=== PATIENT | female | born 1990 | race Caucasian/White ===

== ENCOUNTER 2020-07-18 11:03 | Emergency (ER) | payer BC, OTHER ==
[2020-07-18 11:11] VITALS: BP 107/77; PULSE 85; TEMP 97.3; BMI 29.2
[2020-07-18] MEDS ORDERED: SODIUM CHLORIDE 1,000 ML IV STA (11:38)
[2020-07-18] MEDS ORDERED: morphine CARPU-JECT 4 MG/1 ML DISP.SYRIN IVPUSH ONE ×2 (11:38→14:19)
[2020-07-18] MEDS ORDERED: ONDANSETRON 4 MG/2 ML VIAL IVPUSH ONE (11:38)
--- NOTE | 2020-07-18 11:45 | PDOC ---
History of Present Illness - General Chief Complaint: Pain Stated Complaint: SENT BY DOC Time Seen by Provider: 07/18/20 11:27 History Source: Patient Exam Limitations: No Limitations - History of Present Illness Travel History: No Initial Comments: 07/18/20 11:38 HISTORY OF PRESENT ILLNESS: 30-year-old female presents emergency department for evaluation of 1 week of upper abdominal pain worse in the right upper quadrant. Patient reports after she eats the pain increases from 8-10 and last for approximately 30 to 45 minutes before returning to level 8. She describes the pain as a sharp intense feeling worse in the right upper quadrant and epigastric regions. She reports as a result of the pain she has had a decreased appetite for this 1 week. Patient is concerned that she has asymptomatic UTIs which end up with her presenting with abdominal pain and pyelonephritis. She was seen in urgent care today reported that her urine was not suggestive of an infection and was referred to the emergency department for reevaluation. She denies fevers, chills, vaginal bleeding, vaginal discharge, dysuria, hematuria. Patient does endorse having frequent soft brown stools over the past week. No recent travel or sick contacts. PAST MEDICAL HISTORY: Denies past medical history SURGICAL HISTORY: Tubal ligation ALLERGIES: Erythromycin REVIEW OF SYSTEMS General/Constitutional: Denies fever or chills. Denies weakness, weight change. HEENT: Denies change in vision. Denies ear pain or discharge. Denies sore throat. Cardiovascular: Denies chest pain or shortness of breath. Respiratory: Denies cough, wheezing, or hemoptysis. Gastrointestinal: See HPI Genitourinary: Denies dysuria, frequency, or change in urination. Musculoskeletal: Denies joint or muscle swelling or pain. Denies neck or back pain. Skin and breasts: Denies rash or easy bruising. Neurologic: Denies headache, vertigo, loss of consciousness, or loss of sensation. Psychiatric: Denies depression or anxiety. Endocrine: Denies increased thirst. Denies abnormal weight change. Hematologic/Lymphatic: Denies anemia, easy bleeding, or history of blood clots. Allergic/Immunologic: Denies hives or skin allergy. Denies latex allergy. PHYSICAL EXAM General Appearance: Well-appearing, appropriately dressed. No apparent distress, no intoxication. Respiratory/Chest: Lungs CTAB. No shortness of breath, chest tenderness, respiratory distress, accessory muscle use. No crackles, rales, rhonchi, stridor, wheezing, dullness Cardiovascular: RRR. S1, S2. No JVD, murmur, bradycardia, tachycardia. Vascular Pulses: Dorsalis-Pedis (R): 2+, Dorsalis-Pedis (L): 2+ Gastrointestinal/Abdominal: Normal bowel sounds. Right upper quadrant tenderness with Zafar sign present. Guarding noted in the epigastrium and right upper quadrant. Remainder of abdominal exam is benign. Musculoskeletal/Extremities: Normal inspection. No CVA tenderness. Integumentary: Appropriate color, dry, warm. No cyanosis, erythema, jaundice or rash 07/18/20 11:40 Past History - Medical History Allergies/Adverse Reactions: Allergies Allergy/AdvReac Type Severity Reaction Status Date / Time erythromycin base Allergy Intermediate Swelling Verified 07/18/20 11:08 Home Medications: Ambulatory Orders Albuterol Sulfate Inhaler - [Ventolin Hfa Inhaler -] 1 - 2 inh PO PRN PRN 06/17/15 Omeprazole [Prilosec] 40 mg PO DAILY 06/17/15 Asthma: Yes COPD: No - Surgical History Abdominal Surgery: Yes - Reproductive History Is Patient Now?: No - Immunization History Immunization Up to Date: Yes - Psycho-Social/Smoking History Smoking History: Former smoker Have you smoked in the past 12 months: Yes If you are a former smoker, when did you quit?: 3 MONTHS AGO Information on smoking cessation initiated: Yes - Substance Abuse Hx (Audit-C & DAST Scrn) How often the patient has a drink containing alcohol: 2-4 times / month Score: In Men: 4 or > Positive; In Women: 3 or > Positive: 2 Screen Result (Pos requires Nsg. Audit-10AR): Negative In the last yr the pt used illegal drug/Rx for NonMed reason: No Score: Yes response is considered Positive: 0 Screen Result (Positive result requires Nsg. DAST-10): Negative *Physical Exam - Vital Signs Last Vital Signs Temp Pulse Resp BP Pulse Ox 97.3 F L 85 17 107/77 99 07/18/20 11:04 07/18/20 11:04 07/18/20 11:04 07/18/20 11:04 07/18/20 11:04 ED Treatment Course - LABORATORY CBC & Chemistry Diagram: 07/18/20 12:15 07/18/20 11:39 Medical Decision Making - Medical Decision Making 07/18/20 11:43 A/P: 30-year-old female with upper abdominal pain for 1 week with accompanying nausea, anorexia and soft brown stools Right upper quadrant tenderness with guarding present Positive Zafar sign Remainder of abdominal exam is benign No CVA tenderness elicited Differential diagnosis includes but is not limited to-cholelithiasis, cholecystitis, choledocholithiasis, cholangitis, gastritis, pulmonary infarct, pancreatitis As patient has no fevers, no jaundice, no shortness of breath or chest pain is less likely to be cholangitis or pulmonary infarct. Labs including lipase Urinalysis, urine , urine culture Normal saline 1 L IV bolus Morphine 4 mg IV push Zofran 4 mg IV push Right upper quadrant ultrasound Reassess 07/18/20 14:19 Right upper quadrant ultrasound is read by Dr. Silva: Unremarkable examination. No gallstones or sonographic evidence of acute cholecystitis are identified. CTA of the chest to rule out pulmonary embolism/infarct Morphine 4 mg IV push Reassess 07/18/20 14:19 07/18/20 17:13 EKG sinus rhythm with rate of 78. Normal intervals. Normal axis. No ST elevations or depressions present. CT of the chest is read by imaging on-call: No evidence of PE. Asymmetric nodular density in the upper outer left breast probably asymmetric breast tissue. Recommend correlation with mammogram and if needed, ultrasound. Patient is aware of asymmetric breast tissue and has reevaluation performed every 6 months by an oncologist. Given normal radiographic and laboratory testing I feel is safe to discharge the patient home to follow-up with her primary doctor. I discussed the physical exam findings, ancillary test results and final diagnoses with the patient. I answered all of the patient's questions. The patient was satisfied with the care received and felt comfortable with the discharge plan and treatment plan. The patient will call their primary care physician within 24 hours to arrange follow-up and will return to the Emergency Department with any new, persistent or worsening symptoms. Portions of this note have been documented using voice recognition software. As a result, errors may occur in the bible worker process. Effort has been made to correct all grammatical and bible worker error, but some may have been missed which may produce sporadic inaccurate bible worker or nonsensical phrases. 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 Your CAT scan and ultrasound today showed no acute abnormalities. There was an irregular density in your left breast at which is noted on your CAT scan. This needs to be followed up as an outpatient to monitor for progression of potential disease. Your laboratory testing today showed no significant abnormalities. Take Tylenol or Motrin as needed for pain. Return to the emergency department for any new or worsening symptoms. Thank you very much for choosing us to provide your emergent healthcare needs. - Post Discharge Activity
[2020-07-18] MEDS ORDERED: morphine SULFATE 4 MG/ML VIAL ONE ×2 (11:57→15:17)
[2020-07-18 12:28] LABS: BASO % 0.7 % (0-2.0); EOS % 1.6 % (0-4.5); HEMATOCRIT 41.5 % (32.4-45.2); HEMOGLOBIN 13.6 GM/dL (10.7-15.3); LYMPH % 23.9 % (8-40); MCH 27.9 pg (25.7-33.7); MCHC 32.7 g/dl (32.0-36.0); MEAN CELL VOLUME 85.4 fl (80-96); MEAN PLT VOLUME 10.1 fl (7.5-11.1); MONO % 5.9 % (3.8-10.2); NEUT % 67.9 % (42.8-82.8); PLATELET COUNT 228 K/MM3 (134-434); RBC 4.86 M/mm3 (3.60-5.2); RDW 15.1 % (11.6-15.6); WHITE BLOOD COUNT 8.7 K/mm3 (4.0-10.0)
[2020-07-18 12:51] LABS: ALBUMIN 4.6 g/dl (3.4-5.0); BILIRUBIN,TOTAL 1.4 mg/dL (0.2-1); BLOOD UREA NITROGEN 18.1 mg/dL (7-18); CALCIUM 9.2 mg/dL (8.5-10.1); CREATININE 0.6 mg/dL (0.55-1.3); POTASSIUM 4.1 mmol/L (3.5-5.1)
--- NOTE | 2020-07-18 15:52 | EKG ---
Test Reason : Blood Pressure : / mmHG Vent. Rate : 078 BPM Atrial Rate : 078 BPM P-R Int : 110 ms QRS Dur : 092 ms QT Int : 394 ms P-R-T Axes : 060 023 020 degrees QTc Int : 449 ms SINUS RHYTHM WITH SINUS ARRHYTHMIA WITH SHORT VA OTHERWISE NORMAL ECG WHEN COMPARED WITH ECG OF 17-JUN-2015 13:04, NO SIGNIFICANT CHANGE WAS FOUND Confirmed by Chaitanya Echols ([id number]) on 07/18/2020 3:52:24 PM Referred By: Confirmed By:Chaitanya Echols
== END 2020-07-18 17:36 | disposition home or self-care (01) ==
LOC: JER 11:03
PROC: 3E033NZ Introduction of Analgesics, Hypnotics, Sedatives into Peripheral Vein, Percutaneous Approach (ICD-10-PCS; principal; 2020-07-18)
PROC: 3E033GC Introduction of Other Therapeutic Substance into Peripheral Vein, Percutaneous Approach (ICD-10-PCS; 2020-07-18)
PROC: 3E0337Z Introduction of Electrolytic and Water Balance Substance into Peripheral Vein, Percutaneous Approach (ICD-10-PCS; 2020-07-18)
DX: R10.11 Right upper quadrant pain (principal)
CPT/HCPCS: 36415; 71275-TC; 76705-TC; 80053; 83690; 85025; 93005; 93010; 99285-25; Q9967